=== PATIENT | male | born 1965 | race Caucasian/White ===

== ENCOUNTER 2019-04-22 21:00 | Emergency (ER) | payer OTHER ==
[2019-04-22 21:54] LABS: BASO % 0.8 % (0-2.0); EOS % 2.2 % (0-4.5); HEMATOCRIT 46.4 % (35.4-49); HEMOGLOBIN 15.5 GM/dl (11.7-16.9); LYMPH % 30.9 % (8-40); MCH 29.4 pg (25.7-33.7); MCHC 33.3 g/dl (32.0-35.9); MEAN CELL VOLUME 88.2 fl (80-96); MEAN PLT VOLUME 8.4 fl (7.5-11.1); MONO % 11.2 % (3.8-10.2); NEUT % 54.9 % (42.8-82.8); PLATELET COUNT 387 K/MM3 (134-434); RBC 5.26 M/mm3 (4.00-5.60); RDW 12.8 % (11.9-15.9)
[2019-04-22 22:14] LABS: ALBUMIN 3.9 g/dl (3.4-5.0); BILIRUBIN,TOTAL 0.5 mg/dl (0.2-1); CALCIUM 8.8 mg/dl (8.5-10); CREATININE 0.9 mg/dl (0.55-1.3); PHOSPHOROUS 4.6 mg/dl (2.5-4.9); POTASSIUM 3.9 mmol/L (3.5-5.1); TOT PROT 7.1 g/dl (6.4-8.2); URIC ACID 6.9 mg/dl (2.6-7.2)
--- NOTE | 2019-04-22 22:28 | PDOC ---
History of Present Illness - General Chief Complaint: Injury Stated Complaint: STUCK WITH DIRTY NEEDLE AT WORK Time Seen by Provider: 04/22/19 21:09 - History of Present Illness Initial Comments: This 53-year-old man with a history of hypertension and one previous needlestick exposure at work (last year) presents with accidental needlestick of the Right index finger at work earlier today. 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 When the patient was removing trash from can within the facility, uncapped needle pierced the palmar side of his right index finger (PIP joint area). Patient was using gloves at the time as per protocol. He states that the needlestick wound was superficial and he needed to search for the needle in the trash ( which he found). He believes it might of been used by one of the residents for self-administered intravenous drug use within the facility. At first, patient could not find any break in skin but a tiny wound was pointed out by 1 of his coworkers. No other injury sustained. Patient had similar accidental needlestick last year. He received a month of HIV PEP and was followed by [facility] infectious disease clinic ( the hospital was close to the facility where the patient works). Other than patient's hypertension, he has no other known illnesses. States he has not taken his antihypertensive medications in several months (he ran out of his prescription and has been feeling "well", so he did not follow-up with his doctor). Medications as noted below No known allergies Tobacco smoker: 1 pack/day; no daily alcohol or other recreational drug use Past History - Past Medical History Allergies/Adverse Reactions: Allergies Allergy/AdvReac Type Severity Reaction Status Date / Time No Known Allergies Allergy Verified 09/01/12 17:38 Home Medications: Ambulatory Orders No Home Medications 09/01/12 Amlodipine Besylate [Norvasc -] 5 mg PO DAILY #0 tablet 09/05/12 Sertraline HCl [Zoloft -] 50 mg PO DAILY #0 tablet 09/05/12 Anemia: No Asthma: No Cancer: No Cardiac Disorders: No CVA: No COPD: No CHF: No Dementia: No Diabetes: No GI Disorders: No Disorders: No HTN: Yes Hypercholesterolemia: No Kidney Stones: No Liver Disease: No Seizures: No Thyroid Disease: No - Surgical History Abdominal Surgery: No Appendectomy: No Cardiac Surgery: No Cholecystectomy: No Lung Surgery: No Neurologic Surgery: No Orthopedic Surgery: Yes (arthroscopic surgery of right knee in 1989,1999) - Reproductive History Testicular Surgery: No - Psycho Social/Smoking Cessation Hx Smoking History: Current every day smoker Have you smoked in the past 12 months: Yes Number of Cigarettes Smoked Daily: 20 Cigars Per Day: 20 'Breaking Loose' booklet given: 09/01/12 Hx Alcohol Use: Yes Drug/Substance Use Hx: No Substance Use Type: Alcohol Hx Substance Use Treatment: No Review of Systems - Review of Systems Able to Perform ROS?: Yes Comments:: 12 point review of systems is negative except for what is noted in the history of present illness *Physical Exam - Physical Exam Comments: GENERAL: Adult male, alert and oriented x3, no acute distress HEAD: Normal with no signs of trauma. EYES: PERRLA, EOMI, sclera anicteric, conjunctiva clear. NECK: Normal range of motion, supple without lymphadenopathy, JVD, or masses. LUNGS: Breath sounds equal, clear to auscultation bilaterally. No wheezes, and no crackles. HEART:Regular rate and rhythm, normal S1 and S2 without murmur, rub or gallop. EXTREMITIES: Tiny (1 mm) nonbleeding punctate wound palmar aspect PIP joint right index finger; no other edema/erythema/tenderness of finger noted Extremity exam otherwise normal NEUROLOGICAL: Cranial nerves II through XII grossly intact. Normal speech. No focal neurological deficits. ED Treatment Course - LABORATORY CBC & Chemistry Diagram: 04/22/19 21:30 04/22/19 21:30 - ADDITIONAL ORDERS Additional order review: Laboratory Results 04/22/19 04/22/19 21:30 21:30 Potassium 3.9 Chloride 107 Carbon Dioxide 24 BUN 15.0 Creatinine 0.9 Est GFR (CKD-EPI)AfAm 111.83 Est GFR (CKD-EPI)NonAf 96.49 Random Glucose 121 H Uric Acid 6.9 Calcium 8.8 Phosphorus 4.6 Total Bilirubin 0.5 AST 21 ALT 31 Alkaline Phosphatase 76 LD Total 173 Total Protein 7.1 Albumin 3.9 Triglycerides 348 H Cholesterol 147 04/22/19 21:30 RBC 5.26 MCV 88.2 MCHC 33.3 RDW 12.8 MPV 8.4 Neutrophils % 54.9 Lymphocytes % 30.9 Monocytes % 11.2 H Eosinophils % 2.2 Basophils % 0.8 Medical Decision Making - Medical Decision Making Right index finger wound cleansed using Hibiclens/ethanol solution. No bleeding or other discharge noted. Patient has no pain on active or passive movement of the finger. Risks and benefits of postexposure prophylaxis discussed with the patient. Because all of the residents of his facility are known to be HIV positive, he is in s higher risk of terrie HIV (or hepatitis B). Patient believes that he has received full vaccination of hepatitis B. Patient received a full month of antiviral treatment after fingerstick accident last year; states that he wishes to receive full month of PEP treatment again. Baseline laboratory evaluation as per protocol drawn. CBC is essentially normal. Majority of the chemistry profile is also normal except for random glucose of 121 and triglycerides of 348. HIV testing is negative. Hepatitis screen is pending. Patient was given HIV prophylaxis starter pack containing Truvada to be taken daily and Isentress to be taken twice daily. Patient should take first dose of medications tonight and continue until seen by the infectious disease clinic at [facility] as he did last year. He should plan on seeing them in the next 48 hours. During this time, he should not work and documentation provided for him. Should also plan on following up with his general medical doctor for evaluation of his blood pressure and his general health within the next week Discharge - Discharge Information Problems reviewed: Yes Clinical Impression/Diagnosis: Needle stick injury of finger of right hand Condition: Stable Disposition: HOME - Follow up/Referral - Patient Discharge Instructions Additional Instructions: Follow-up with [facility] post exposure prophylaxis clinic (as you did last year) within 48 hours no work until seen at the postexposure prophylaxis clinic Truvada 1 tab daily/Isentress 1 tablet twice daily for 1 month Return or see your doctor if wound becomes red/swollen/more painful Follow-up with your general doctor within the next 1 to 2 weeks - Post Discharge Activity Work/Back to School Note: Back to Work
[2019-04-22] MEDS ORDERED: HIV POST EXPOSURE PROPHYLAXIS KIT PO ONE (23:00)
== END 2019-04-23 00:37 | disposition home or self-care (01) ==
LOC: FER 21:00
DX: Z77.21 Contact with and (suspected) exposure to potentially hazardous body fluids (principal); S60.450A Superficial foreign body of right index finger, initial encounter; W46.1XXA Contact with contaminated hypodermic needle, initial encounter; Y93.89 Activity, other specified; Y92.89 Other specified places as the place of occurrence of the external cause; Y99.0 Civilian activity done for income or pay; I10 Essential (primary) hypertension; F17.210 Nicotine dependence, cigarettes, uncomplicated
CPT/HCPCS: 36415; 80053; 82465; 82977; 83615; 84100; 84478; 84550; 85025; 86317; 86704; 86706; 86803; 87340; 87389; 99281-25